=== PATIENT | female | born 1965 | race Caucasian/White ===

== ENCOUNTER 2016-11-19 18:42 | Emergency (ER) | payer OTHER ==
--- NOTE | 2016-11-19 20:01 | ED ORDER SUMMARY ---
..... Patient: JOSE RAUL PRINCE OrderSheet [facility] VisitID: [id number] [address] [place] [address] 51y, F Registration Date/Time: 11/19/2016 ORDER SHEET Weight: 74.3 kg (stated) Allergies: Tylenol GENERAL ORDERS: MEDICATION ORDERS: Dilaudid IM 1 mg (HIGH ALERT MEDICATION, NOW) (19:48 11/19/2016 HBivens A.R.N.P.) (Ack 19:52 JQuivey R.N.) (20:00 JQuivey R.N.) Zofran ODT PO 4 mg (NOW) (19:48 11/19/2016 HBivens A.R.N.P.) (Ack 19:52 JQuivey R.N.) (20:00 JQuivey R.N.) IV FLUIDS: ORDER SHEET NOTES: [Electronically signed by Ambreen McclellandR.N.P. (22:04 11/19/2016)] [Electronically signed by Tony Fagan R.N. (22:22 11/19/2016)] [Electronically locked/signed by Tony Fagan R.N. (22:22 11/19/2016)]
--- NOTE | 2016-11-19 20:01 | ED NURSING NOTES ---
Clinical Report - Nurses [facility] [address] [place] [place] [address] 11/19/2016 18:42 Patient: JOSE RAUL PRINCE TRIAGE Triage time 18:51. Acuity: LEVEL 4. Chief Complaint: MIGRAINE HEADACHE. 18:58 11/19/16. SEPSIS SCREEN: Sepsis Screen. Negative (no infection suspected/documented). GILMER COMA SCORE: [place] Coma Scale: 15- eyes open spontaneously (4); best verbal response- oriented x 4 (5); best motor response- obeys commands (6). --18:59 Amilcar Arias R.N. 18:51 11/19/16. BP: 110/75. HR: 86. RR: 16. O2 saturation: 95% on room air. Temp: 98.5 F (oral). Pain level now: 07/26. --18:59 Amilcar Arias R.N. Weight: 74.3 kg stated. Height/Length: 68 inches Per Patient. BMI: 24.9. --18:56 Amilcar Arias R.N. Medications Effexor XR Oral 75 mg, daily. Gabapentin Oral 300 mg, 2x a day. Ibuprofen Oral 800 mg, PRN. --18:54 Amilcar Arias R.N. Tramadol HCL Oral 50 mg, daily (Started 10 days ago). --18:54 Amilcar Arias R.N. Medication/allergy information source: the patient. --18:59 Amilcar Arias R.N. Allergies Tylenol. (when she takes a lot) --18:54 Amilcar Arias R.N. History Arrived by private vehicle. Historian: patient. This started 3 weeks. ( She has been seen x2 at [facility], migraine continues. She usually gets Toradol injections and has relief, but not this time.). She has had nausea, vomiting and weakness. 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 SOCIAL HX: Heavy tobacco smoker (cigarette)- 1 pack per day. No alcohol use or drug use. ABUSE ASSESSMENT: No report of abuse. --18:59 Amilcar Arias R.N. PROBLEMS: Headache. Fibromyalgia. Depression. Lumbar Strain. Tetanus Status. Immunizations. Migraine Headache. Neck Pain. Back Pain. --18:54 Amilcar Arias R.N. ADDITIONAL SURGERIES: Adenoidectomy. Appendectomy. Back Surgery. . Hysterectomy. Ovarian cysts. Tonsillectomy. Tonsillectomy & Adenoidectomy. --18:54 Amilcar Arias R.N. Interventions ID band on patient. To treatment room. --18:59 Amilcar Arias R.N. PHYSICAL ASSESSMENT late entry -19:00. Ambulatory to room. GENERAL / NEURO / PSYCH: Alert. Oriented X 4. Appears in pain. Speech within normal limits. ( unkempt appearance). HEENT: No facial asymmetry noted. Photophobia present. No sinus tenderness present or nasal discharge. RESPIRATORY: Respirations not labored. Breath sounds within normal limits. CVS: Capillary refill less than 2 seconds. GI / : The patient has had nausea. Abdomen soft and nontender. SKIN: Skin is warm and dry. --19:13 Amilcar Arias R.N. NURSING PROGRESS NOTES late entry -17:00. Pulse oximeter and NIBP monitor placed on patient; monitor alarms on. Head of bed elevated. Reassurance given. Two patient identifiers checked. Call light placed in reach. Bed placed in lowest position. Brakes of bed on. Patient ready for evaluation- chart flagged. --19:14 Amilcar Arias R.N. 19:14 11/19/16. Care transferred and report given (Tony Durant RN). --19:14 Amilcar Arias R.N. 19:58 11/19/2016 Zofran ODT (Ondansetron) PO 4 mg given. Allergies verified and confirmed 5 rights. --20:12 Tony Fagan R.N. 20:00 11/19/2016 Dilaudid (HYDROmorphone HCl PF) IM 1 mg given. Given in the right ventral gluteus. Allergies verified, confirmed 5 rights and sedative warning given to the patient. --20:00 Tnoy Fagan R.N. <<STRICKEN ENTRY-- 20:58 11/19/2016 Zofran ODT (Ondansetron) PO 4 mg given. Allergies verified and confirmed 5 rights. --20:00 Tony Fagan R.N. --END STRIKE>> Correction. --20:12 Tony Fagan R.N. 20:21. The patient is calm and resting quietly. Overall patient status- she states feels better. GENERAL / NEURO / PSYCH: Alert. Oriented X 4. RESPIRATORY: No respiratory distress. SKIN: Skin is warm and dry. Skin color within normal limits. --20:27 Tony Fagan R.N. DISPOSITION / DISCHARGE Departure time: 20:23. Condition at departure: stable. No learning barriers present. Discharge instructions provided and reviewed with the patient. Reviewed medication(s) side effects, precautions, dosing and course information. Prescription(s) given to the patient. Patient verbalized understanding. Written instructions provided in [place]serratian. The patient was discharged home and accompanied by family. She left the Emergency Department ambulatory and via private vehicle. Family member driving. FALL RISK ASSESSMENT: Fall risk assessment completed. No fall risk identified. --20:27 Tony Fagan R.N. 20:19 11/19/16. BP: 97/59. HR: 86. RR: 16. O2 saturation: 96%. Pain level now: 04/25. --20:27 Tony Fagan R.N. Locked/Released at 11/19/2016 22:22 by Tony Fagan R.N.
--- NOTE | 2016-11-19 20:01 | ED ORDER SUMMARY ---
..... Patient: JOSE RAUL PRINCE OrderSheet [facility] VisitID: [id number] [address] [place] [address] 51y, F Registration Date/Time: 11/19/2016 ORDER SHEET Weight: 74.3 kg (stated) Allergies: Tylenol GENERAL ORDERS: MEDICATION ORDERS: Dilaudid IM 1 mg (HIGH ALERT MEDICATION, NOW) (19:48 11/19/2016 HBivens A.R.N.P.) (Ack 19:52 JQuivey R.N.) (20:00 JQuivey R.N.) Zofran ODT PO 4 mg (NOW) (19:48 11/19/2016 HBivens A.R.N.P.) (Ack 19:52 JQuivey R.N.) (20:00 JQuivey R.N.) IV FLUIDS: ORDER SHEET NOTES: [Electronically signed by Ambreen McclellandR.N.P. (22:04 11/19/2016)] [Electronically signed by Tony Fagan R.N. (22:22 11/19/2016)] [Electronically locked/signed by Tony Fagan R.N. (22:22 11/19/2016)]
--- NOTE | 2016-11-19 20:01 | ED CLINICAL REPORT ---
Clinical Report - Physicians/Mid Levels [facility] [address] [place] [address] 11/19/2016 18:42 Patient: JOSE RAUL PRINCE Time Seen: 19:27; initial patient contact, initial documentation, patient care assumed. Arrived- By private vehicle. Historian- patient. HISTORY OF PRESENT ILLNESS Is still present. Chief Complaint: HEADACHE and MIGRAINE HEADACHE. This started about 10 days ago. Onset during sleep. It is described as similar to previous headaches, "pain" and diffuse. No neck pain. Not located in the facial region. At its maximum, severity described as severe. When seen in the E.D., severity described as severe. Modifying factors: worsened by bright light and noise; relieved by nothing. The patient has had mild photophobia. There has been no eye redness or discharge, matting or foreign body sensation. She has had nausea. She has had vomiting (none today). No preceding symptoms, blurred vision, numbness or weakness. No recent travel. Similar symptoms previously: Chronically, as bad. ( wakes up every day with a migraine). Recent medical care: The patient was seen recently at another facility in the emergency department. ( went to [facility] er twice, given toradol each time which helps a little, no f/u). REVIEW OF SYSTEMS No fever, sinus pressure, ear pain, sore throat or carbon monoxide exposure. No chest pain or difficulty breathing. She sustained a mild head injury from bumping into an object (hit top of head on kitchen cabinet). No associated loss of consciousness, difficulty with thinking, memory loss or visual disturbances. No associated bruising, swelling, abrasion or laceration to the head. All systems otherwise negative, except as recorded above. PAST HISTORY See nurses notes. PROBLEMS: Headache. Fibromyalgia. Depression. Lumbar Strain. Tetanus Status. Immunizations. Migraine Headache. Neck Pain. Back Pain. --18:54 Amilcar Arias R.N. ADDITIONAL SURGERIES: Adenoidectomy. Appendectomy. Back Surgery. . Hysterectomy. Ovarian cysts. Tonsillectomy. Tonsillectomy & Adenoidectomy. --18:54 Amilcar Arias R.N. SOCIAL HISTORY Heavy tobacco smoker. No alcohol use or drug use. No recent travel. Is a local resident. FAMILY HISTORY Negative. ADDITIONAL NOTES The nursing notes have been reviewed with agreement regarding the chief complaint, HPI, ROS, PMH and patient medications and allergies. PHYSICAL EXAM Vital Signs: 11/19/2016 18:51 BP: 110/75. HR: 86. RR: 16. O2 saturation: 95%. Temp: 98.5 F. Pain level now: 10. Have been reviewed as normal and appear to be correct. Appearance: Alert. No acute distress. Eyes: Pupils equal, round and reactive to light. Eyes normal inspection. ENT: Ears normal. Nose normal. Pharynx normal. Neck: Normal inspection. Neck supple. CVS: Normal heart rate and rhythm. Heart sounds normal. Pulses normal. Respiratory: No respiratory distress. Breath sounds normal. Abdomen: Soft and nontender. No organomegaly. Back: Normal inspection. Skin: Skin warm and dry. Normal skin color. No rash. Normal skin turgor. Extremities: Extremities exhibit normal ROM. No lower extremity edema. Neuro: Oriented X 3. Alert. Mood/affect normal. Speech normal. Cranial nerves normal (as tested). No cerebellar findings. No motor deficit. No sensory deficit. PROGRESS AND PROCEDURES Course of Care: 19:38 11/19/16. NANCI Green assisting with exam and tx plan with my full supervision. Patient counseled in person regarding the patient's stable condition and diagnosis. 20:01. Differential Diagnosis: I considered migraine, cluster headache, ischemic stroke, subarachnoid hemorrhage, intracranial bleed, vascular malformation, cerebral aneurysm, vasculitis, brain abscess, influenza, viral syndrome, carbon monoxide exposure, hypoglycemia and trigeminal neuralgia as a possible cause of headache in this patient. This is a partial list of diagnoses considered. Above considerations are based on history and physical exam. Differential diagnosis was discussed with patient. Disposition: Discharged home in good and improved condition (20:01). Condition: good and stable. CLINICAL IMPRESSION Episodic cluster headache. INSTRUCTIONS Warnings: GENERAL WARNINGS: Return or contact your physician immediately if your condition worsens or changes unexpectedly, if not improving as expected, or if other problems arise. SPECIFICALLY, return if you develop fever, vomiting, numbness, weakness, difficulty thinking, visual disturbances, fainting or extreme fatigue. Prescription Medications: Zofran 4 mg: Take 1 orally every six hours as needed for nausea/vomiting. Dispense ten (10). No refills. Substitution is permissible. Follow-up: Follow up with your doctor in about three days as needed. Call for an appointment. Summary of care provided to patient. Understanding of the discharge instructions verbalized by patient. (Electronically signed by Ambreen Mcclelland A.R.N.P. 11/19/2016 22:04)
--- NOTE | 2016-11-19 20:01 | ED NURSING NOTES ---
Clinical Report - Nurses [facility] [address] [place] [address] 11/19/2016 18:42 Patient: JOSE RAUL PRINCE TRIAGE Triage time 18:51. Acuity: LEVEL 4. Chief Complaint: MIGRAINE HEADACHE. 18:58 11/19/16. SEPSIS SCREEN: Sepsis Screen. Negative (no infection suspected/documented). GILMER COMA SCORE: [place] Coma Scale: 15- eyes open spontaneously (4); best verbal response- oriented x 4 (5); best motor response- obeys commands (6). --18:59 Amilcar Arias R.N. 18:51 11/19/16. BP: 110/75. HR: 86. RR: 16. O2 saturation: 95% on room air. Temp: 98.5 F (oral). Pain level now: 07/26. --18:59 Amilcar Arias R.N. Weight: 74.3 kg stated. Height/Length: 68 inches Per Patient. BMI: 24.9. --18:56 Amilcar Arias R.N. Medications Effexor XR Oral 75 mg, daily. Gabapentin Oral 300 mg, 2x a day. Ibuprofen Oral 800 mg, PRN. --18:54 Amilcar Arias R.N. Tramadol HCL Oral 50 mg, daily (Started 10 days ago). --18:54 Amilcar Arias R.N. Medication/allergy information source: the patient. --18:59 Amilcar Arias R.N. Allergies Tylenol. (when she takes a lot) --18:54 Amilcar Arias R.N. History Arrived by private vehicle. Historian: patient. This started 3 weeks. ( She has been seen x2 at [facility], migraine continues. She usually gets Toradol injections and has relief, but not this time.). She has had nausea, vomiting and weakness. 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 SOCIAL HX: Heavy tobacco smoker (cigarette)- 1 pack per day. No alcohol use or drug use. ABUSE ASSESSMENT: No report of abuse. --18:59 Amilcar Arias R.N. PROBLEMS: Headache. Fibromyalgia. Depression. Lumbar Strain. Tetanus Status. Immunizations. Migraine Headache. Neck Pain. Back Pain. --18:54 Amilcar Arias R.N. ADDITIONAL SURGERIES: Adenoidectomy. Appendectomy. Back Surgery. . Hysterectomy. Ovarian cysts. Tonsillectomy. Tonsillectomy & Adenoidectomy. --18:54 Amilcar Arias R.N. Interventions ID band on patient. To treatment room. --18:59 Amilcar Arias R.N. PHYSICAL ASSESSMENT late entry -19:00. Ambulatory to room. GENERAL / NEURO / PSYCH: Alert. Oriented X 4. Appears in pain. Speech within normal limits. ( unkempt appearance). HEENT: No facial asymmetry noted. Photophobia present. No sinus tenderness present or nasal discharge. RESPIRATORY: Respirations not labored. Breath sounds within normal limits. CVS: Capillary refill less than 2 seconds. GI / : The patient has had nausea. Abdomen soft and nontender. SKIN: Skin is warm and dry. --19:13 Amilcar Arias R.N. NURSING PROGRESS NOTES late entry -17:00. Pulse oximeter and NIBP monitor placed on patient; monitor alarms on. Head of bed elevated. Reassurance given. Two patient identifiers checked. Call light placed in reach. Bed placed in lowest position. Brakes of bed on. Patient ready for evaluation- chart flagged. --19:14 Amilcar Arias R.N. 19:14 11/19/16. Care transferred and report given (Tony Durant RN). --19:14 Amilcar Arias R.N. 19:58 11/19/2016 Zofran ODT (Ondansetron) PO 4 mg given. Allergies verified and confirmed 5 rights. --20:12 Tony Fagan R.N. 20:00 11/19/2016 Dilaudid (HYDROmorphone HCl PF) IM 1 mg given. Given in the right ventral gluteus. Allergies verified, confirmed 5 rights and sedative warning given to the patient. --20:00 Tony Fagan R.N. <<STRICKEN ENTRY-- 20:58 11/19/2016 Zofran ODT (Ondansetron) PO 4 mg given. Allergies verified and confirmed 5 rights. --20:00 Tony Fagan R.N. --END STRIKE>> Correction. --20:12 Tony Fagan R.N. 20:21. The patient is calm and resting quietly. Overall patient status- she states feels better. GENERAL / NEURO / PSYCH: Alert. Oriented X 4. RESPIRATORY: No respiratory distress. SKIN: Skin is warm and dry. Skin color within normal limits. --20:27 Tony Fagan R.N. DISPOSITION / DISCHARGE Departure time: 20:23. Condition at departure: stable. No learning barriers present. Discharge instructions provided and reviewed with the patient. Reviewed medication(s) side effects, precautions, dosing and course information. Prescription(s) given to the patient. Patient verbalized understanding. Written instructions provided in Salv[place]orean. The patient was discharged home and accompanied by family. She left the Emergency Department ambulatory and via private vehicle. Family member driving. FALL RISK ASSESSMENT: Fall risk assessment completed. No fall risk identified. --20:27 Tony Fagan R.N. 20:19 11/19/16. BP: 97/59. HR: 86. RR: 16. O2 saturation: 96%. Pain level now: 04/25. --20:27 Tony Fagan R.N. Locked/Released at 11/19/2016 22:22 by Tony Fagan R.N.
--- NOTE | 2016-11-19 22:23 | ED MAR SUMMARY ---
..... Medication Administration Record [facility] [address] [place] [address] Patient: JOSE RAUL PRINCE Visit ID: [id number] 51y, F Weight: 74.3 kg Height/Length: 68 in BMI: 24.9 ALLERGIES: Tylenol Given 19:58 11/19/2016 Tony Fagan, R.N. Medication Administered: ZOFRAN ODT [PO] (ONDANSETRON), Dose: 4 mg PO. Medication Ordered: Zofran ODT PO 4 mg (NOW). Given 20:00 11/19/2016 Tony Fagan, R.N. Medication Administered: DILAUDID [IM] (HYDROMORPHONE HCL PF), Dose: 1 mg IM. Medication Ordered: Dilaudid IM 1 mg (HIGH ALERT MEDICATION, NOW).
--- NOTE | 2016-11-19 22:23 | ED DISCHARGE INSTRUCTIONS ---
Patient: JOSE RAUL PRINCE General Instructions Merged With [facility] VisitID: [id number] [place] [address] 51y, F Registration Date/Time: 11/19/2016 Episodic cluster headache. INSTRUCTIONS Warnings: GENERAL WARNINGS: Return or contact your physician immediately if your condition worsens or changes unexpectedly, if not improving as expected, or if other problems arise. SPECIFICALLY, return if you develop fever, vomiting, numbness, weakness, difficulty thinking, visual disturbances, fainting or extreme fatigue. Prescription Medications: Zofran 4 mg: Take 1 orally every six hours as needed for nausea/vomiting. Dispense ten (10). No refills. Substitution is permissible. Follow-up: Follow up with your doctor in about three days as needed. Call for an appointment. Summary of care provided to patient. Understanding of the discharge instructions verbalized by patient. ADDITIONAL INFORMATION Headache [Unspecified] The cause of your headache today is not clear, but it does not appear to be the sign of any serious illness. Under stress, some people tense the muscles of their shoulder, neck and scalp without knowing it. If this condition lasts long enough, a TENSION HEADACHE can occur. A MIGRAINE HEADACHE is caused by changes in blood flow to the brain. A migraine attack may be triggered by emotional stress, hormone changes during the menstrual cycle, oral contraceptives, alcohol use, certain foods containing tyramine, eye strain, weather changes, missing meals, lack of sleep or oversleeping. Other causes of headache include a viral illness with high fever, head injury with concussion, sinus, ear or throat infection, dental pain and TMJ (jaw joint) pain. More serious but less common causes of headache include stroke, brain hemorrhage, brain tumor, meningitis and encephalitis. Home Care: If you were given pain medicine for this headache, do not drive yourself home. Arrange for a ride, instead. When you get home, try to sleep. You should feel much better when you wake up. Apply heat to the back of your neck to relieve neck muscle spasm. Migraine headaches may respond best to an ice pack on the forehead or at the base of the skull. If you are having nausea or vomiting, follow a light diet until your headache is relieved. If you have a migraine type headache, use sunglasses when in the daylight or around bright indoor lighting until symptoms improve. Bright glaring light can worsen this kind of headache. Follow Up with your doctor if the headache is not better within the next 24 hours. If you have frequent headaches you should discuss a treatment plan with your primary care doctor. By being aware of the earliest signs of headache, and starting treatment right away, you may be able to stop the pain yourself. Get Prompt Medical Attention if any of the following occur: Worsening of your head pain or no improvement within 24 hours Repeated vomiting (unable to keep liquids down) Fever of 100.4F (38C) or higher, or as directed by your healthcare provider Stiff neck Extreme drowsiness, confusion or fainting Dizziness, vertigo (dizziness with spinning sensation) Weakness of an arm or leg or one side of the face Difficulty with speech or vision Ondansetron Oral disintegrating tablet What is this medicine? ONDANSETRON (on TIANA se mari) is used to treat nausea and vomiting caused by chemotherapy. It is also used to prevent or treat nausea and vomiting after surgery. How should I use this medicine? These tablets are made to dissolve in the mouth. Do not try to push the tablet through the foil backing. With dry hands, peel away the foil backing and gently remove the tablet. Place the tablet in the mouth and allow it to dissolve, then swallow. While you may take these tablets with water, it is not necessary to do so. Talk to your film printer regarding the use of this medicine in children. Special care may be needed. What side effects may I notice from receiving this medicine? Side effects that you should report to your doctor or health personal carer as soon as possible: allergic reactions like skin rash, itching or hives, swelling of the face, lips, or tongue breathing problems dizziness fast or irregular heartbeat feeling faint or lightheaded, falls fever and chills swelling of the hands and feet tightness in the chest Side effects that usually do not require medical attention (report to your doctor or health personal carer if they continue or are bothersome): constipation or diarrhea headache What may interact with this medicine? Do not take this medicine with any of the following medications: -apomorphine -cisapride -dofetilide -dronedarone -pimozide -thioridazine -ziprasidone This medicine may also interact with the following medications: -carbamazepine -phenytoin -rifampicin -tramadol -other medicines that prolong the QT interval (cause an abnormal heart rhythm) What if I miss a dose? If you miss a dose, take it as soon as you can. If it is almost time for your next dose, take only that dose. Do not take double or extra doses. Where should I keep my medicine? Keep out of the reach of children. Store between 2 and 30 degrees C (36 and 86 degrees F). Throw away any unused medicine after the expiration date. What should I tell my health care provider before I take this medicine? They need to know if you have any of these conditions: heart disease history of irregular heartbeat liver disease low levels of magnesium or potassium in the blood an unusual or allergic reaction to ondansetron, granisetron, other medicines, foods, dyes, or preservatives or trying to get breast-feeding What should I watch for while using this medicine? Check with your doctor or health personal carer as soon as you can if you have any sign of an allergic reaction. You have been given the following additional information: Headache, Unspecified Ondansetron Oral disintegrating tablet (Electronically signed by Ambreen Mcclelland A.R.N.P. 11/19/2016 22:04)
--- NOTE | 2016-11-19 22:23 | ED DISCHARGE INSTRUCTIONS ---
Patient: JOSE RAUL PRINCE General Instructions [facility] VisitID: [id number] [place] [address] 51y, F Registration Date/Time: 11/19/2016 Episodic cluster headache. INSTRUCTIONS Warnings: GENERAL WARNINGS: Return or contact your physician immediately if your condition worsens or changes unexpectedly, if not improving as expected, or if other problems arise. SPECIFICALLY, return if you develop fever, vomiting, numbness, weakness, difficulty thinking, visual disturbances, fainting or extreme fatigue. Prescription Medications: Zofran 4 mg: Take 1 orally every six hours as needed for nausea/vomiting. Dispense ten (10). No refills. Substitution is permissible. Follow-up: Follow up with your doctor in about three days as needed. Call for an appointment. Summary of care provided to patient. Understanding of the discharge instructions verbalized by patient. ADDITIONAL INFORMATION Headache [Unspecified] The cause of your headache today is not clear, but it does not appear to be the sign of any serious illness. Under stress, some people tense the muscles of their shoulder, neck and scalp without knowing it. If this condition lasts long enough, a TENSION HEADACHE can occur. A MIGRAINE HEADACHE is caused by changes in blood flow to the brain. A migraine attack may be triggered by emotional stress, hormone changes during the menstrual cycle, oral contraceptives, alcohol use, certain foods containing tyramine, eye strain, weather changes, missing meals, lack of sleep or oversleeping. Other causes of headache include a viral illness with high fever, head injury with concussion, sinus, ear or throat infection, dental pain and TMJ (jaw joint) pain. More serious but less common causes of headache include stroke, brain hemorrhage, brain tumor, meningitis and encephalitis. Home Care: If you were given pain medicine for this headache, do not drive yourself home. Arrange for a ride, instead. When you get home, try to sleep. You should feel much better when you wake up. Apply heat to the back of your neck to relieve neck muscle spasm. Migraine headaches may respond best to an ice pack on the forehead or at the base of the skull. If you are having nausea or vomiting, follow a light diet until your headache is relieved. If you have a migraine type headache, use sunglasses when in the daylight or around bright indoor lighting until symptoms improve. Bright glaring light can worsen this kind of headache. Follow Up with your doctor if the headache is not better within the next 24 hours. If you have frequent headaches you should discuss a treatment plan with your primary care doctor. By being aware of the earliest signs of headache, and starting treatment right away, you may be able to stop the pain yourself. Get Prompt Medical Attention if any of the following occur: Worsening of your head pain or no improvement within 24 hours Repeated vomiting (unable to keep liquids down) Fever of 100.4F (38C) or higher, or as directed by your healthcare provider Stiff neck Extreme drowsiness, confusion or fainting Dizziness, vertigo (dizziness with spinning sensation) Weakness of an arm or leg or one side of the face Difficulty with speech or vision Ondansetron Oral disintegrating tablet What is this medicine? ONDANSETRON (on TIANA se mari) is used to treat nausea and vomiting caused by chemotherapy. It is also used to prevent or treat nausea and vomiting after surgery. How should I use this medicine? These tablets are made to dissolve in the mouth. Do not try to push the tablet through the foil backing. With dry hands, peel away the foil backing and gently remove the tablet. Place the tablet in the mouth and allow it to dissolve, then swallow. While you may take these tablets with water, it is not necessary to do so. Talk to your manager technical sales regarding the use of this medicine in children. Special care may be needed. What side effects may I notice from receiving this medicine? Side effects that you should report to your doctor or health animal caregiver as soon as possible: allergic reactions like skin rash, itching or hives, swelling of the face, lips, or tongue breathing problems dizziness fast or irregular heartbeat feeling faint or lightheaded, falls fever and chills swelling of the hands and feet tightness in the chest Side effects that usually do not require medical attention (report to your doctor or health animal caregiver if they continue or are bothersome): constipation or diarrhea headache What may interact with this medicine? Do not take this medicine with any of the following medications: -apomorphine -cisapride -dofetilide -dronedarone -pimozide -thioridazine -ziprasidone This medicine may also interact with the following medications: -carbamazepine -phenytoin -rifampicin -tramadol -other medicines that prolong the QT interval (cause an abnormal heart rhythm) What if I miss a dose? If you miss a dose, take it as soon as you can. If it is almost time for your next dose, take only that dose. Do not take double or extra doses. Where should I keep my medicine? Keep out of the reach of children. Store between 2 and 30 degrees C (36 and 86 degrees F). Throw away any unused medicine after the expiration date. What should I tell my health care provider before I take this medicine? They need to know if you have any of these conditions: heart disease history of irregular heartbeat liver disease low levels of magnesium or potassium in the blood an unusual or allergic reaction to ondansetron, granisetron, other medicines, foods, dyes, or preservatives or trying to get breast-feeding What should I watch for while using this medicine? Check with your doctor or health animal caregiver as soon as you can if you have any sign of an allergic reaction. You have been given the following additional information: Headache, Unspecified Ondansetron Oral disintegrating tablet (Electronically signed by Ambreen Mcclelland A.R.N.P. 11/19/2016 22:04)
--- NOTE | 2016-11-19 22:23 | ED MED RECONCILIATION SUMMARY ---
Patient: JOSE RAUL PRINCE Medication Reconciliation Report [facility] VisitID: [id number] [address] [place] [address] 51y, F Registration Date/Time: 11/19/2016 Weight: 74.3 kg Height/Length: 68 in. BMI: 24.9 ALLERGIES: Tylenol The patient's Home Medications are listed below: THE FOLLOWING MEDICATIONS NEED TO BE RECONCILED: Effexor XR Oral 75 mg, daily Gabapentin Oral 300 mg, 2x a day Ibuprofen Oral 800 mg, PRN Tramadol HCL Oral 50 mg, daily, Started 10 days ago The source(s) of the original Home Medication information: patient The following Medications were given to the patient in the Emergency Department: Zofran ODT [PO] PO 4 mg, administered: 11/19/2016 7:58:00 PM Dilaudid [IM] IM 1 mg, administered: 11/19/2016 8:00:00 PM The following Medications were prescribed to the patient: Zofran 4 mg: Take 1 orally every six hours as needed for nausea/vomiting. Dispense ten (10). No refills. Substitution is permissible. -- Ambreen Mcclelland A.R.N.P.
--- NOTE | 2016-11-19 22:23 | ED MED RECONCILIATION SUMMARY ---
Patient: JOSE RAUL PRINCE Medication Reconciliation Report [facility] VisitID: [id number] [address] [place] [address] 51y, F Registration Date/Time: 11/19/2016 Weight: 74.3 kg Height/Length: 68 in. BMI: 24.9 ALLERGIES: Tylenol The patient's Home Medications are listed below: THE FOLLOWING MEDICATIONS NEED TO BE RECONCILED: Effexor XR Oral 75 mg, daily Gabapentin Oral 300 mg, 2x a day Ibuprofen Oral 800 mg, PRN Tramadol HCL Oral 50 mg, daily, Started 10 days ago The source(s) of the original Home Medication information: patient The following Medications were given to the patient in the Emergency Department: Zofran ODT [PO] PO 4 mg, administered: 11/19/2016 7:58:00 PM Dilaudid [IM] IM 1 mg, administered: 11/19/2016 8:00:00 PM The following Medications were prescribed to the patient: Zofran 4 mg: Take 1 orally every six hours as needed for nausea/vomiting. Dispense ten (10). No refills. Substitution is permissible. -- Ambreen Mcclelland A.R.N.P.
--- NOTE | 2016-11-19 22:23 | ED MAR SUMMARY ---
..... Medication Administration Record [facility] [address] [place] [address] Patient: JOSE RAUL PRINCE Visit ID: [id number] 51y, F Weight: 74.3 kg Height/Length: 68 in BMI: 24.9 ALLERGIES: Tylenol Given 19:58 11/19/2016 Tony Fagan, R.N. Medication Administered: ZOFRAN ODT [PO] (ONDANSETRON), Dose: 4 mg PO. Medication Ordered: Zofran ODT PO 4 mg (NOW). Given 20:00 11/19/2016 Tony Fagan, R.N. Medication Administered: DILAUDID [IM] (HYDROMORPHONE HCL PF), Dose: 1 mg IM. Medication Ordered: Dilaudid IM 1 mg (HIGH ALERT MEDICATION, NOW).
== END 2016-11-19 20:23 | disposition home or self-care (01) ==
LOC: ED SRH 18:42
DX: G44.019 Episodic cluster headache, not intractable (principal); F17.210 Nicotine dependence, cigarettes, uncomplicated; Z88.6 Allergy status to analgesic agent

== ENCOUNTER 2016-11-20 01:34 | Emergency (ER) | payer OTHER ==
--- NOTE | 2016-11-20 03:19 | ED CLINICAL REPORT ---
Clinical Report - Physicians/Mid Levels [facility] [address] [place] [place] [address] 11/20/2016 1:34 Patient: JOSE RAUL PRINCE Time Seen: 0145; initial patient contact. Arrived- By private vehicle. Historian- patient. HISTORY OF PRESENT ILLNESS Chief Complaint: HEADACHE. Is still present (staying the same). This started 1 week ago. It was gradual in onset and has been constant and waxing/waning but is not gone now. Patient was last known well (1 week ago). Onset during does not recall. It is described as similar to previous headaches. Located in the right hemicranial region. No neck pain. Not located in the facial region. At its maximum, severity described as severe. When seen in the E.D., severity described as severe. Modifying factors: worsened by bright light and noise; relieved by nothing; (usually better with "Toradol" but that did not help recently). The patient has had photophobia and nausea. No preceding symptoms, blurred vision, numbness, weakness or vomiting. No recent travel. Similar symptoms previously: Many times. ( hx of "migraines"). Recent medical care: The patient was seen recently in a clinic (reports she got toradol at [facility] but that has not helped.). REVIEW OF SYSTEMS No fever, chest pain, difficulty breathing, abdominal pain or skin rash. All systems otherwise negative, except as recorded above. PAST HISTORY See nurses notes. SOCIAL HISTORY Smoker- current status unknown. No alcohol use or drug use. No recent travel. Is a local resident. FAMILY HISTORY Negative. ADDITIONAL NOTES The nursing notes have been reviewed. PHYSICAL EXAM Vital Signs: 11/20/2016 01:40 BP: 133/78. HR: 87. RR: 19. O2 saturation: 95%. Temp: 97.1 F. Pain level now: 9/10. Blood pressure normal. Oxygen saturation normal. Appearance: Alert. No acute distress. Eyes: Pupils equal, round and reactive to light. Eyes normal inspection. (no papilledema. Normal appearing retinal vasculature. Conjunctiva without injection. Normal lids, lacrimals, and lashes). ENT: Ears normal. Nose normal. Pharynx normal. Neck: Normal inspection. Neck supple. No meningeal signs. CVS: Normal heart rate and rhythm. Heart sounds normal. Pulses normal. Respiratory: No respiratory distress. Breath sounds normal. Abdomen: Soft and nontender. No organomegaly. Back: Normal inspection. Skin: Skin warm and dry. Normal skin color. No rash. Normal skin turgor. Extremities: Extremities exhibit normal ROM. No lower extremity edema. Neuro: Oriented X 3. Alert. Mood/affect normal. Speech normal. Cranial nerves normal (as tested). No cerebellar findings. No motor deficit. No sensory deficit. Reflexes normal. PROGRESS AND PROCEDURES Course of Care: the patient is a pleasant 51-year-old female with past medical history significant for headaches presented for evaluation of headache. Headache appears to be similar to prior headaches. Patient then evaluated for supper hemorrhage, meningitis, space-occupying lesion, and increased intracranial pressure. Signs and symptoms here in the emergency department as well as history are not consistent with any these etiologies. Patient is resting in bed and appears nontoxic. Vital signs are unremarkable. Medications for headache and been given. Patient is agreeable to the treatment plan. Work up shows patient to be doing much better. Patient symptoms improved. Per RN, patient reporting "restless leg syndrome." patient reevaluated. Patient sleeping in bed and snoring. Appropriate when awake. No symptoms. Repeat exam benign. Pain reported at a zero. Do not feel patient has a more sinister cause for headache. All questions answered. Patient expressed understanding of these instructions and was agreeable to them. Patient evaluated prior to discharge. Continues to be doing well. Exam reassuring. Disposition: Discharged. Condition: good. CLINICAL IMPRESSION 11/20/2016 01:40 BP: 133/78. HR: 87. RR: 19. O2 saturation: 95%. Temp: 97.1 F. Pain level now: 9/10. Acute headache (right sided). Blood pressure normal. Oxygen saturation normal. INSTRUCTIONS Warnings: GENERAL WARNINGS: Return or contact your physician immediately if your condition worsens or changes unexpectedly, if not improving as expected, or if other problems arise. SPECIFICALLY, return if you develop fever, vomiting, numbness, weakness, difficulty thinking, visual disturbances, fainting or extreme fatigue. Your Current Medications: CONTINUE TAKING THE FOLLOWING MEDICATIONS: Effexor XR Oral : 75 mg daily. Gabapentin Oral : 300 mg 2x a day. Ibuprofen Oral : 800 mg PRN. Tramadol HCL Oral : 50 mg daily, Started 10 days ago. Prescription Medications: Zofran (orally disintegrating tablets) 4 mg: take 1 orally every 8 hours as needed for nausea and vomiting. Dispense ten (10). No refill. Substitution is permissible. Fiorinal 50 mg: take 1 orally every 6 hours as needed for pain or headache. Dispense thirty (30). No refill. Substitution is permissible. Follow-up: Return to the emergency department as needed. Follow up with your doctor in three days. Reason for referral: recheck today's concerns. Summary of care provided to patient via paper. Screening today revealed the patient's blood pressure to be in the normal range. The patient should follow up with a primary care provider for blood pressure management. Understanding of the discharge instructions verbalized by patient. (Electronically signed by Jordin Weiner Dr. 11/26/2016 21:23)
--- NOTE | 2016-11-20 03:19 | ED ORDER SUMMARY ---
..... Patient: JOSE RAUL PRINCE OrderSheet [facility] VisitID: [id number] [address] [place] [address] 51y, F Registration Date/Time: 11/20/2016 ORDER SHEET Weight: 74.3 kg (stated) Allergies: Tylenol GENERAL ORDERS: MEDICATION ORDERS: Phenergan IV 25 mg (HIGH ALERT MEDICATION, NOW) (01:57 11/20/2016 Theron Bailon) (Ack 2:03 JQuivey R.N.) (2:17 JQuivey R.N.) IV FLUIDS: IV NS : initial bolus 1000 mL (1000 mL/hr), then none - for X1 (NOW) (:56 11/20/2016 Theron Bailon) (Ack 2:02 JQuivey R.N.) (2:16 JQuivey R.N.) Toradol IV 30 mg (NOW) (:56 11/20/2016 Theron Bailon) (Ack 2:02 JQuivey R.N.) (2:19 JQuivey R.N.) Benadryl IV 25 mg (NOW) (:56 11/20/2016 Theron Bailon) (Ack 2:02 JQuivey R.N.) (2:19 JQuivey R.N.) Decadron IV 10 mg (NOW) (:57 11/20/2016 Theron Bailon) (Ack 2:03 JQuivey R.N.) (2:20 JQuivey R.N.) ORDER SHEET NOTES: [Electronically signed by Tony Fagan R.N. (03:36 11/20/2016)] [Electronically signed by Jordin Weiner Dr. (21:23 11/26/2016)] [Electronically locked/signed by Tony Fagan R.N. (03:36 11/20/2016)]
--- NOTE | 2016-11-20 03:19 | ED NURSING NOTES ---
Clinical Report - Nurses [facility] [address] [place] [address] 11/20/2016 1:34 Patient: JOSE RAUL PRINCE TRIAGE Triage time 01:40. Acuity: LEVEL 4. Chief Complaint: HEADACHE. Alert. SEPSIS SCREEN: Sepsis Screen. Negative (no infection suspected/documented). GILMER COMA SCORE: [place] Coma Scale: 15- eyes open spontaneously (4); best verbal response- oriented x 4 (5); best motor response- obeys commands (6). --01:48 Tony Fagan R.N. 01:40 11/20/16. BP: 133/78. HR: 87. RR: 19. O2 saturation: 95% on room air. Temp: 97.1 F (axillary). Pain level now: 9/10. Additional comments: Oral temp was 94.5 - pt states she had water with Ibuprofen . --01:48 Tony Fagan R.N. Acuity: LEVEL 3. --02:23 Tony Fagan R.N. Weight: 74.3 kg stated. Height/Length: 68 inches Per Patient. BMI: 24.9. --01:45 Tony Fagan R.N. Medications Effexor XR Oral 75 mg, daily. Gabapentin Oral 300 mg, 2x a day. Ibuprofen Oral 800 mg, PRN. --01:45 Tony Fagan R.N. Tramadol HCL Oral 50 mg, daily (Started 10 days ago). --01:45 Tony Fagan R.N. Medication/allergy information source: the patient. --01:48 Tony Fagan R.N. Allergies Tylenol. (when she takes a lot) --01:45 Tony Fagan R.N. History Arrived by private vehicle. Historian: patient. Unaccompanied. Primary physician (None). This started 1 weeks ago. ( Patient was seen in the ED last evening with same complaint, states KWON got no better after leaving the ED. States she was able to sleep for a bit since waking the KWON has gotten worse). Treatment [employer]: Took ibuprofen. PAST MEDICAL HX: Immunizations: up-to-date. The patient has had a hysterectomy. SOCIAL HX: Current every day heavy tobacco smoker- 1 pack per day. No alcohol use or drug use. No recent travel. No infectious disease exposure. ABUSE ASSESSMENT: No report of abuse. FALL RISK ASSESSMENT: Fall risk assessment completed. No fall risk identified. NUTRITIONAL RISK ASSESSMENT: The nutritional risk assessment revealed no deficiencies. FUNCTIONAL ASSESSMENT: Functional assessment: no impairments noted. LEARNING NEEDS ASSESSMENT: The learning needs assessment revealed no barriers. SKIN INTEGRITY ASSESSMENT: Skin integrity risk assessment completed. No skin integrity risk identified. --01:48 Tony Fagan R.N. PROBLEMS: Headache. Fibromyalgia. Depression. Lumbar Strain. Migraine Headache. Back Pain. --01:45 Tony Fagan R.N. ADDITIONAL SURGERIES: Adenoidectomy. Appendectomy. Back Surgery. . Hysterectomy. Ovarian cysts. Tonsillectomy. Tonsillectomy & Adenoidectomy. --01:45 Tony Fagan R.N. Interventions ID band on patient. To treatment room. --01:48 Tony Fagan R.N. PHYSICAL ASSESSMENT 01:48. To room via wheelchair. GENERAL / NEURO / PSYCH: Alert. Oriented X 4. Speech within normal limits. HEENT: No facial asymmetry noted. RESPIRATORY: Respirations not labored. SKIN: Skin is warm and dry. --01:48 Tony Fagan R.N. NURSING PROGRESS NOTES 01:48. Head of bed elevated. Two patient identifiers checked. Call light placed in reach. Bed placed in lowest position. Brakes of bed on. Patient ready for evaluation- chart flagged. --01:48 Tony Fagan R.N. Cold pack applied (given to pt). --01:50 Tony Fagan R.N. 02:11/20/2016 Site #1 started via IV in the right antecubital space with an 20g angiocath, with aseptic technique and good blood return; one attempt. Blood drawn: rainbow set. Labeled in the presence of the patient and sent to the lab. --02:16 Tony Fagan R.N. 02:11/20/2016 Started bag #1 1000 mL IV Fluids IV NS (Saline); at 750 mL/hr over 1 hour(s) via site #1 --02:16 Tony Fagan R.N. 02:11 11/20/2016 PHENERGAN (Promethazine HCl) IVP 25 mg given over 2 minute(s) via site #1. Allergies verified and confirmed 5 rights. IV patency established. IV site checked: no pain, redness, or swelling. IV flushed thoroughly pre- and post-medication administration. --02:17 Tony Fagan R.N. 02:13 11/20/2016 Benadryl (DiphenhydrAMINE HCl) IVP 25 mg given over 2 minute(s) via site #1. Allergies verified, confirmed 5 rights and sedative warning given to the patient. IV patency established. IV site checked: no pain, redness, or swelling. IV flushed thoroughly pre- and post-medication administration. --02:19 Tony Fagan R.N. 02:15 11/20/2016 Toradol IVP 30 mg given over 2 minute(s) via site #1. Allergies verified and confirmed 5 rights. IV patency established. IV site checked: no pain, redness, or swelling. IV flushed thoroughly pre- and post-medication administration. --02:19 Tony Fagan R.N. 02:17 11/20/2016 Decadron IVP 10 mg given over 2 minute(s) via site #1. Allergies verified and confirmed 5 rights. IV patency established. IV site checked: no pain, redness, or swelling. IV flushed thoroughly pre- and post-medication administration. --02:20 Tony Fagan R.N. The patient is calm and resting quietly. GENERAL / NEURO / PSYCH: Alert. Oriented X 4. RESPIRATORY: No respiratory distress. SKIN: Skin is warm and dry. Skin color within normal limits. --03:03 Tony Fagan R.N. 03:03 11/20/16. Pain level now: 04/25. --03:03 Tony Fagan R.N. 03:27 11/20/2016 IV Fluids IV NS Discontinued: bag #1 STOPPED upon discharge. Total amount infused: 825 mL. IV patency established. IV site checked: no pain, redness, or swelling. IV flushed thoroughly. --03:31 Tony Fagan R.N. 03:32. The patient is calm and resting quietly. Overall patient status is improved- she states feels better. GENERAL / NEURO / PSYCH: Alert. Oriented X 4. RESPIRATORY: No respiratory distress. SKIN: Skin is warm and dry. Skin color within normal limits. --03:36 Tony Fagan R.N. DISPOSITION / DISCHARGE 03:28 11/20/2016 Site #1 removed upon discharge. Catheter intact. Bandage applied. --03:31 Tony Fagan R.N. Departure time: 03:34. Condition at departure: stable. No learning barriers present. Discharge instructions provided and reviewed with the patient. Reviewed medication(s) side effects, precautions, dosing and course information. Prescription(s) given to the patient. Patient verbalized understanding. Written instructions provided in Nauruan. The patient was discharged home and unaccompanied at time of discharge. She left the Emergency Department ambulatory and via private vehicle. Patient driving. FALL RISK ASSESSMENT: Fall risk assessment completed. No fall risk identified. --03:36 Tony Fagan R.N. 03:26 11/20/16. BP: 111/70. HR: 70. RR: 16. O2 saturation: 94%. Pain level now: 01/24. --03:36 Tony Fagan R.N. Locked/Released at 11/20/2016 3:36 by Tony Fagan R.N.
--- NOTE | 2016-11-20 03:19 | ED ORDER SUMMARY ---
..... Patient: JOSE RAUL PRINCE OrderSheet [facility] VisitID: [id number] [address] [place] [address] 51y, F Registration Date/Time: 11/20/2016 ORDER SHEET Weight: 74.3 kg (stated) Allergies: Tylenol GENERAL ORDERS: MEDICATION ORDERS: Phenergan IV 25 mg (HIGH ALERT MEDICATION, NOW) (01:57 11/20/2016 Theron Bailon) (Ack 2:03 JQuivey R.N.) (2:17 JQuivey R.N.) IV FLUIDS: IV NS : initial bolus 1000 mL (1000 mL/hr), then none - for X1 (NOW) (:56 11/20/2016 Theron Bailon) (Ack 2:02 JQuivey R.N.) (2:16 JQuivey R.N.) Toradol IV 30 mg (NOW) (:56 11/20/2016 Theron Bailon) (Ack 2:02 JQuivey R.N.) (2:19 JQuivey R.N.) Benadryl IV 25 mg (NOW) (:56 11/20/2016 Theron Bailon) (Ack 2:02 JQuivey R.N.) (2:19 JQuivey R.N.) Decadron IV 10 mg (NOW) (:57 11/20/2016 Theron Bailon) (Ack 2:03 JQuivey R.N.) (2:20 JQuivey R.N.) ORDER SHEET NOTES: [Electronically signed by Tony Fagan R.N. (03:36 11/20/2016)] [Electronically signed by Jordin Wiener Dr. (21:23 11/26/2016)] [Electronically locked/signed by Tony Fagan R.N. (03:36 11/20/2016)]
--- NOTE | 2016-11-26 21:23 | ED MAR SUMMARY ---
..... Medication Administration Record [facility] [address] [place] [address] Patient: JOSE RAUL PRINCE Visit ID: [id number] 51y, F Weight: 74.3 kg Height/Length: 68 in BMI: 24.9 ALLERGIES: Tylenol Start 02:10 11/20/2016 Tony Fagan R.N., Stop 03:27 11/20/2016 Tony Fagan R.N. Medication Administered: IV NS (SALINE), Dose: IV Fluids over 1 hour(s), Rate: 750 mL/hr, Dispensed: 1000 mL bag, Site: #1 right AC. Medication Ordered: IV NS : initial bolus 1000 mL (1000 mL/hr), then none - for X1 (NOW). Given 02:11 11/20/2016 Tony Fagan R.N. Medication Administered: PHENERGAN [IVP] (PROMETHAZINE HCL), Dose: 25 mg IVP over 2 minute(s), Site: #1 right AC. Medication Ordered: Phenergan IV 25 mg (HIGH ALERT MEDICATION, NOW). Given 02:13 11/20/2016 Tony Fagan R.N. Medication Administered: BENADRYL [IVP] (DIPHENHYDRAMINE HCL), Dose: 25 mg IVP over 2 minute(s), Site: #1 right AC. Medication Ordered: Benadryl IV 25 mg (NOW). Given 02:15 11/20/2016 Tony Fagan R.N. Medication Administered: TORADOL [IVP], Dose: 30 mg IVP over 2 minute(s), Site: #1 right AC. Medication Ordered: Toradol IV 30 mg (NOW). Given 02:17 11/20/2016 Tony Fagan R.N. Medication Administered: DECADRON [IVP], Dose: 10 mg IVP over 2 minute(s), Site: #1 right AC. Medication Ordered: Decadron IV 10 mg (NOW).
--- NOTE | 2016-11-26 21:23 | ED MED RECONCILIATION SUMMARY ---
Patient: JOSE RAUL PRINCE Medication Reconciliation Report [facility] VisitID: [id number] [address] [place] [address] 51y, F Registration Date/Time: 11/20/2016 Weight: 74.3 kg Height/Length: 68 in. BMI: 24.9 ALLERGIES: Tylenol The patient's Home Medications are listed below: CONTINUE TAKING THE FOLLOWING MEDICATIONS: Effexor XR Oral 75 mg, daily Gabapentin Oral 300 mg, 2x a day Ibuprofen Oral 800 mg, PRN Tramadol HCL Oral 50 mg, daily, Started 10 days ago The source(s) of the original Home Medication information: patient The following Medications were given to the patient in the Emergency Department: IV NS IV Fluids bolus 0, then 750 mL/hr, administered: 11/20/2016 2:10:00 AM PHENERGAN [IVP] IVP 25 mg, administered: 11/20/2016 2:11:00 AM Benadryl [IVP] IVP 25 mg, administered: 11/20/2016 2:13:00 AM Toradol [IVP] IVP 30 mg, administered: 11/20/2016 2:15:00 AM Decadron [IVP] IVP 10 mg, administered: 11/20/2016 2:17:00 AM The following Medications were prescribed to the patient: Zofran (orally disintegrating tablets) 4 mg: take 1 orally every 8 hours as needed for nausea and vomiting. Dispense ten (10). No refill. Substitution is permissible. -- Jordin Weiner Dr. Fiorinal 50 mg: take 1 orally every 6 hours as needed for pain or headache. Dispense thirty (30). No refill. Substitution is permissible. -- Jordin Weiner Dr.
--- NOTE | 2016-11-26 21:23 | ED DISCHARGE INSTRUCTIONS ---
Patient: JOSE RAUL PRINCE General Instructions [facility] VisitID: [id number] [address] [place] [address] 51y, F Registration Date/Time: 11/20/2016 11/20/2016 01:40 BP: 133/78. HR: 87. RR: 19. O2 saturation: 95%. Temp: 97.1 F. Pain level now: 06/26. Acute headache (right sided). Blood pressure normal. Oxygen saturation normal. INSTRUCTIONS Warnings: GENERAL WARNINGS: Return or contact your physician immediately if your condition worsens or changes unexpectedly, if not improving as expected, or if other problems arise. SPECIFICALLY, return if you develop fever, vomiting, numbness, weakness, difficulty thinking, visual disturbances, fainting or extreme fatigue. Your Current Medications: CONTINUE TAKING THE FOLLOWING MEDICATIONS: Effexor XR Oral : 75 mg daily. Gabapentin Oral : 300 mg 2x a day. Ibuprofen Oral : 800 mg PRN. Tramadol HCL Oral : 50 mg daily, Started 10 days ago. Prescription Medications: Zofran (orally disintegrating tablets) 4 mg: take 1 orally every 8 hours as needed for nausea and vomiting. Dispense ten (10). No refill. Substitution is permissible. Fiorinal 50 mg: take 1 orally every 6 hours as needed for pain or headache. Dispense thirty (30). No refill. Substitution is permissible. Follow-up: Return to the emergency department as needed. Follow up with your doctor in three days. Reason for referral: recheck today's concerns. Summary of care provided to patient via paper. Screening today revealed the patient's blood pressure to be in the normal range. The patient should follow up with a primary care provider for blood pressure management. Understanding of the discharge instructions verbalized by patient. ADDITIONAL INFORMATION Headache [Unspecified] The cause of your headache today is not clear, but it does not appear to be the sign of any serious illness. Under stress, some people tense the muscles of their shoulder, neck and scalp without knowing it. If this condition lasts long enough, a TENSION HEADACHE can occur. A MIGRAINE HEADACHE is caused by changes in blood flow to the brain. A migraine attack may be triggered by emotional stress, hormone changes during the menstrual cycle, oral contraceptives, alcohol use, certain foods containing tyramine, eye strain, weather changes, missing meals, lack of sleep or oversleeping. Other causes of headache include a viral illness with high fever, head injury with concussion, sinus, ear or throat infection, dental pain and TMJ (jaw joint) pain. More serious but less common causes of headache include stroke, brain hemorrhage, brain tumor, meningitis and encephalitis. Home Care: If you were given pain medicine for this headache, do not drive yourself home. Arrange for a ride, instead. When you get home, try to sleep. You should feel much better when you wake up. Apply heat to the back of your neck to relieve neck muscle spasm. Migraine headaches may respond best to an ice pack on the forehead or at the base of the skull. If you are having nausea or vomiting, follow a light diet until your headache is relieved. If you have a migraine type headache, use sunglasses when in the daylight or around bright indoor lighting until symptoms improve. Bright glaring light can worsen this kind of headache. Follow Up with your doctor if the headache is not better within the next 24 hours. If you have frequent headaches you should discuss a treatment plan with your primary care doctor. By being aware of the earliest signs of headache, and starting treatment right away, you may be able to stop the pain yourself. Get Prompt Medical Attention if any of the following occur: Worsening of your head pain or no improvement within 24 hours Repeated vomiting (unable to keep liquids down) Fever of 100.4F (38C) or higher, or as directed by your healthcare provider Stiff neck Extreme drowsiness, confusion or fainting Dizziness, vertigo (dizziness with spinning sensation) Weakness of an arm or leg or one side of the face Difficulty with speech or vision Ondansetron Oral disintegrating tablet What is this medicine? ONDANSETRON (on TIANA se mari) is used to treat nausea and vomiting caused by chemotherapy. It is also used to prevent or treat nausea and vomiting after surgery. How should I use this medicine? These tablets are made to dissolve in the mouth. Do not try to push the tablet through the foil backing. With dry hands, peel away the foil backing and gently remove the tablet. Place the tablet in the mouth and allow it to dissolve, then swallow. While you may take these tablets with water, it is not necessary to do so. Talk to your tile conduit layer regarding the use of this medicine in children. Special care may be needed. What side effects may I notice from receiving this medicine? Side effects that you should report to your doctor or health customer care agent as soon as possible: allergic reactions like skin rash, itching or hives, swelling of the face, lips, or tongue breathing problems dizziness fast or irregular heartbeat feeling faint or lightheaded, falls fever and chills swelling of the hands and feet tightness in the chest Side effects that usually do not require medical attention (report to your doctor or health customer care agent if they continue or are bothersome): constipation or diarrhea headache What may interact with this medicine? Do not take this medicine with any of the following medications: -apomorphine -cisapride -dofetilide -dronedarone -pimozide -thioridazine -ziprasidone This medicine may also interact with the following medications: -carbamazepine -phenytoin -rifampicin -tramadol -other medicines that prolong the QT interval (cause an abnormal heart rhythm) What if I miss a dose? If you miss a dose, take it as soon as you can. If it is almost time for your next dose, take only that dose. Do not take double or extra doses. Where should I keep my medicine? Keep out of the reach of children. Store between 2 and 30 degrees C (36 and 86 degrees F). Throw away any unused medicine after the expiration date. What should I tell my health care provider before I take this medicine? They need to know if you have any of these conditions: heart disease history of irregular heartbeat liver disease low levels of magnesium or potassium in the blood an unusual or allergic reaction to ondansetron, granisetron, other medicines, foods, dyes, or preservatives or trying to get breast-feeding What should I watch for while using this medicine? Check with your doctor or health customer care agent as soon as you can if you have any sign of an allergic reaction. Butalbital, Aspirin, Caffeine Oral tablet What is this medicine? ASPIRIN; BUTALBITAL; CAFFEINE ( pir in; bysukhi MONTOYA bi juli; KAF een) is a pain reliever. It is used to treat tension headaches. How should I use this medicine? Take this medicine by mouth with a full glass of water. Follow the directions on the prescription label. If the medicine upsets your stomach, take the medicine with food or milk. Do not take more than you are told to take. Talk to your tile conduit layer regarding the use of this medicine in children. Special care may be needed. Caution should be used in children, especially teenagers, that have the chicken pox or flu. What side effects may I notice from receiving this medicine? Side effects that you should report to your doctor or health customer care agent as soon as possible: allergic reactions like skin rash, itching or hives, swelling of the face, lips, or tongue breathing problems confusion feeling faint or lightheaded, falls redness, blistering, peeling or loosening of the skin, including inside the mouth signs and symptoms of bleeding such as bloody or black, tarry stools; red or dark-brown urine; spitting up blood or brown material that looks like coffee grounds; red spots on the skin; unusual bruising or bleeding from the eye, gums, or nose Side effects that usually do not require medical attention (report to your doctor or health customer care agent if they continue or are bothersome): dizziness drowsiness nausea, vomiting What may interact with this medicine? Do not take this medicine with any of the following medications: alcohol or medicines that contain alcohol cidofovir furazolidone methotrexate MAOIs like Carbex, Eldepryl, Marplan, Nardil, and Parnate probenecid procarbazine voriconazole warfarin This medicine may also interact with the following medications: antidepressants antihistamines benzodiazepines heparin and heparin like drugs including enoxaparin, dalteparin, and tinzaparin medicines for pain muscle relaxants NSAIDs, medicines for pain and inflammation, like ibuprofen or naproxen phenothiazines like chlorpromazine, mesoridazine, prochlorperazine, thioridazine What if I miss a dose? If you miss a dose, take it as soon as you can. If it is almost time for your next dose, take only that dose. Do not take double or extra doses. Where should I keep my medicine? Keep out of the reach of children. This medicine can be abused. Keep your medicine in a safe place to protect it from theft. Do not share this medicine with anyone. Selling or giving away this medicine is dangerous and against the law. Store at room temperature between 20 and 25 degrees C (68 and 77 degrees F). Keep container tightly closed. Protect from light. Throw away any unused medicine after the expiration date. What should I tell my health care provider before I take this medicine? They need to know if you have any of these conditions: drink more than 3 alcohol containing drinks per day drug abuse or addiction heart or circulation problems hemophilia, von Willebrand's disease, low platelets, or other bleeding problems kidney disease or problems going to the bathroom liver disease lung disease like asthma or emphysema peptic ulcer disease porphyria an unusual or allergic reaction to aspirin or salicylates, butalbital or other barbiturates, caffeine, other medicines, foods, dyes, or preservatives or trying to get breast-feeding What should I watch for while using this medicine? Tell your doctor or health customer care agent if your pain does not go away, if it gets worse, or if you have new or a different type of pain. You may develop tolerance to the medicine. Tolerance means that you will need a higher dose of the medicine for pain relief. Tolerance is normal and is expected if you take the medicine for a long time. Do not suddenly stop taking your medicine because you may develop a severe reaction. Your body becomes used to the medicine. This does NOT mean you are addicted. Addiction is a behavior related to getting and using a drug for a non-medical reason. If you have pain, you have a medical reason to take pain medicine. Your doctor will tell you how much medicine to take. If your doctor wants you to stop the medicine, the dose will be slowly lowered over time to avoid any side effects. You may get drowsy or dizzy when you first start taking the medicine or change doses. Do not drive, use machinery, or do anything that may be dangerous until you know how the medicine affects you. Stand or sit up slowly. Too much aspirin can be very dangerous. Do not take aspirin or medicines that contain aspirin with this medicine. Many non-prescription medicines contain aspirin. Always read the labels carefully. You have been given the following additional information: Headache, Unspecified Ondansetron Oral disintegrating tablet Butalbital, Aspirin, Caffeine Oral tablet (Electronically signed by Jordin Weiner Dr. 11/26/2016 21:23)
--- NOTE | 2016-11-26 21:23 | ED MED RECONCILIATION SUMMARY ---
Patient: JOSE RAUL PRINCE Medication Reconciliation Report [facility] VisitID: [id number] [address] [place] [address] 51y, F Registration Date/Time: 11/20/2016 Weight: 74.3 kg Height/Length: 68 in. BMI: 24.9 ALLERGIES: Tylenol The patient's Home Medications are listed below: CONTINUE TAKING THE FOLLOWING MEDICATIONS: Effexor XR Oral 75 mg, daily Gabapentin Oral 300 mg, 2x a day Ibuprofen Oral 800 mg, PRN Tramadol HCL Oral 50 mg, daily, Started 10 days ago The source(s) of the original Home Medication information: patient The following Medications were given to the patient in the Emergency Department: IV NS IV Fluids bolus 0, then 750 mL/hr, administered: 11/20/2016 2:10:00 AM PHENERGAN [IVP] IVP 25 mg, administered: 11/20/2016 2:11:00 AM Benadryl [IVP] IVP 25 mg, administered: 11/20/2016 2:13:00 AM Toradol [IVP] IVP 30 mg, administered: 11/20/2016 2:15:00 AM Decadron [IVP] IVP 10 mg, administered: 11/20/2016 2:17:00 AM The following Medications were prescribed to the patient: Zofran (orally disintegrating tablets) 4 mg: take 1 orally every 8 hours as needed for nausea and vomiting. Dispense ten (10). No refill. Substitution is permissible. -- Jordin Weiner Dr. Fiorinal 50 mg: take 1 orally every 6 hours as needed for pain or headache. Dispense thirty (30). No refill. Substitution is permissible. -- Jordin Weiner Dr.
--- NOTE | 2016-11-26 21:23 | ED MAR SUMMARY ---
..... Medication Administration Record [facility] [address] [place] [address] Patient: JOSE RAUL PRINCE Visit ID: [id number] 51y, F Weight: 74.3 kg Height/Length: 68 in BMI: 24.9 ALLERGIES: Tylenol Start 02:10 11/20/2016 Tony Fagan R.N., Stop 03:27 11/20/2016 Tony Fagan R.N. Medication Administered: IV NS (SALINE), Dose: IV Fluids over 1 hour(s), Rate: 750 mL/hr, Dispensed: 1000 mL bag, Site: #1 right AC. Medication Ordered: IV NS : initial bolus 1000 mL (1000 mL/hr), then none - for X1 (NOW). Given 02:11 11/20/2016 Tony Fagan R.N. Medication Administered: PHENERGAN [IVP] (PROMETHAZINE HCL), Dose: 25 mg IVP over 2 minute(s), Site: #1 right AC. Medication Ordered: Phenergan IV 25 mg (HIGH ALERT MEDICATION, NOW). Given 02:13 11/20/2016 Tony Fagan R.N. Medication Administered: BENADRYL [IVP] (DIPHENHYDRAMINE HCL), Dose: 25 mg IVP over 2 minute(s), Site: #1 right AC. Medication Ordered: Benadryl IV 25 mg (NOW). Given 02:15 11/20/2016 Tony Fagan R.N. Medication Administered: TORADOL [IVP], Dose: 30 mg IVP over 2 minute(s), Site: #1 right AC. Medication Ordered: Toradol IV 30 mg (NOW). Given 02:17 11/20/2016 Tony Fagan R.N. Medication Administered: DECADRON [IVP], Dose: 10 mg IVP over 2 minute(s), Site: #1 right AC. Medication Ordered: Decadron IV 10 mg (NOW).
== END 2016-11-20 03:34 | disposition home or self-care (01) ==
LOC: ED SRH 01:34
DX: R51 Headache (principal); Z88.6 Allergy status to analgesic agent

== ENCOUNTER 2017-01-01 02:59 | Emergency (ER) | payer OTHER ==
--- NOTE | 2017-01-01 05:44 | ED ORDER SUMMARY ---
..... Patient: JOSE RAUL PRINCE Order[facility] VisitID: [id number] [address] [place] [address] 51y, F Registration Date/Time: 01/01/2017 ORDER SHEET Weight: 72.1 kg (stated) Allergies: Tylenol, Imitrex GENERAL ORDERS: CT Head wo Cont Urgent (03:22 01/01/2017 Rigoberto UMANA) (Ack 3:25 IJurca ER Tech1) (4:02 GUnger) CT Cervical Spine wo Cont Urgent (03:01/01/2017 Rigoberto UMANA) (Ack 3:25 IJurca ER Tech1) (4:02 GUnger) Lumbar Spine 2 or 3V Urgent (03:01/01/2017 Rigoberto UMANA) (Ack 3:25 IJurca ER Tech1) (4:02 GUnger) MEDICATION ORDERS: IV FLUIDS: ORDER SHEET NOTES: [Electronically signed by Richard Adrian R.N. (05:58 01/01/2017)] [Electronically signed by Michele Wiley MD (23:38 01/05/2017)] [Electronically locked/signed by Richard Adrian R.N. (05:58 01/01/2017)]
--- NOTE | 2017-01-01 05:44 | ED ORDER SUMMARY ---
..... Patient: JOSE RAUL PRINCE OrderSheet [facility] VisitID: [id number] [address] [place] [address] 51y, F Registration Date/Time: 01/01/2017 ORDER SHEET Weight: 72.1 kg (stated) Allergies: Tylenol, Imitrex GENERAL ORDERS: CT Head wo Cont Urgent (03:22 01/01/2017 Rigoberto UMANA) (Ack 3:25 IJurca ER Tech1) (4:02 GUnger) CT Cervical Spine wo Cont Urgent (03:01/01/2017 Rigoberto UMANA) (Ack 3:25 IJurca ER Tech1) (4:02 GUnger) Lumbar Spine 2 or 3V Urgent (03:01/01/2017 Rigoberto UMANA) (Ack 3:25 IJurca ER Tech1) (4:02 GUnger) MEDICATION ORDERS: IV FLUIDS: ORDER SHEET NOTES: [Electronically signed by Richard Adrian R.N. (05:58 01/01/2017)] [Electronically signed by Michele Wiley MD (23:38 01/05/2017)] [Electronically locked/signed by Richard Adrian R.N. (05:58 01/01/2017)]
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
--- NOTE | 2017-01-05 23:39 | ED MAR SUMMARY ---
..... Medication Administration Record [facility] [address], [place] [id number] Patient: JOSE RAUL PRINCE Visit ID: [id number] 51y, F Weight: 72.1 kg Height/Length: 68 in BMI: 24.2 ALLERGIES: Tylenol, Imitrex
--- NOTE | 2017-01-05 23:39 | ED MAR SUMMARY ---
..... Medication Administration Record [facility] [address] [place], [place] [id number] Patient: JOSE RAUL PRINCE Visit ID: [id number] 51y, F Weight: 72.1 kg Height/Length: 68 in BMI: 24.2 ALLERGIES: Tylenol, Imitrex
--- NOTE | 2017-01-05 23:39 | ED MED RECONCILIATION SUMMARY ---
Patient: JOSE RAUL PRINCE Medication Reconciliation Report [facility] VisitID: [id number] [address] [place] [address] 51y, F Registration Date/Time: 01/01/2017 Weight: 72.1 kg Height/Length: 68 in. BMI: 24.2 ALLERGIES: Imitrex, Tylenol The patient's Home Medications are listed below: THE FOLLOWING MEDICATIONS NEED TO BE RECONCILED: "Barbitol" Effexor XR Oral 75 mg, daily Gabapentin Oral 300 mg, 2x a day Ibuprofen Oral 800 mg, PRN The source(s) of the original Home Medication information: Not obtained. The following Medications were given to the patient in the Emergency Department: None. The following Medications were prescribed to the patient: Soma 350 mg: Take 1 orally every 6 hours as needed for muscle spasm. Dispense twenty (20). No refills. Substitution is permissible. -- Michele Wiley MD
--- NOTE | 2017-01-05 23:39 | ED MED RECONCILIATION SUMMARY ---
Patient: JOSE RAUL PRINCE Medication Reconciliation Report [facility] VisitID: [id number] [address] [place] [address] 51y, F Registration Date/Time: 01/01/2017 Weight: 72.1 kg Height/Length: 68 in. BMI: 24.2 ALLERGIES: Imitrex, Tylenol The patient's Home Medications are listed below: THE FOLLOWING MEDICATIONS NEED TO BE RECONCILED: "Barbitol" Effexor XR Oral 75 mg, daily Gabapentin Oral 300 mg, 2x a day Ibuprofen Oral 800 mg, PRN The source(s) of the original Home Medication information: Not obtained. The following Medications were given to the patient in the Emergency Department: None. The following Medications were prescribed to the patient: Soma 350 mg: Take 1 orally every 6 hours as needed for muscle spasm. Dispense twenty (20). No refills. Substitution is permissible. -- Michele Wiley MD
== END 2017-01-01 05:58 | disposition home or self-care (01) ==
LOC: ED SRH 02:59
DX: S32.038A Other fracture of third lumbar vertebra, initial encounter for closed fracture (principal); S16.1XXA Strain of muscle, fascia and tendon at neck level, initial encounter; S39.012A Strain of muscle, fascia and tendon of lower back, initial encounter; S00.93XA Contusion of unspecified part of head, initial encounter; V43.61XA Car passenger injured in collision with sport utility vehicle in traffic accident, initial encounter; Y99.9 Unspecified external cause status; Y92.830 Public park as the place of occurrence of the external cause; F17.210 Nicotine dependence, cigarettes, uncomplicated

== ENCOUNTER 2017-02-05 14:28 | Emergency (ER) | payer OTHER ==
--- NOTE | 2017-02-05 15:21 | ED CLINICAL REPORT ---
Clinical Report - Physicians/Mid Levels [facility] [address] [place] [address] 02/05/2017 14:28 Patient: JOSE RAUL PRINCE Time Seen: 15:12. Arrived- By private vehicle. Historian- patient. HISTORY OF PRESENT ILLNESS Chief Complaint: BACK PAIN AND OUT OF METHOCARBIMOL. At its maximum, severity described as moderate. When seen in the E.D., severity described as moderate. Modifying factors- worsened by movement. This started about 10 days ago; Low back pain. Also sore heels. No new bowel or bladder incontinence. No new numbness or weakness. No injury and is still present. It was gradual in onset. The patient has had generalized muscle aches. Similar symptoms previously: Many times. REVIEW OF SYSTEMS No fever, cough, difficulty breathing, chest pain or abdominal pain. No nausea, vomiting or diarrhea. PAST HISTORY PCP: Esha [facility] PROBLEMS: Contusion. Myofascial Strain. Cervical Strain. Headache. Fibromyalgia. Depression. Lumbar Strain. Tetanus Status. Immunizations. Back Pain. Migraine Headache. Neck Pain. --14:43 Gladis Mendes, RMaria Del CarmenN. ADDITIONAL SURGERIES: Adenoidectomy. Appendectomy. Back Surgery. . Hysterectomy. Ovarian cysts. Tonsillectomy. Tonsillectomy & Adenoidectomy. SOCIAL HISTORY Current every day smoker. ADDITIONAL NOTES The nursing notes have been reviewed. PHYSICAL EXAM Vital Signs: 02/05/2017 14:38 BP: 97/80. HR: 90. RR: 20. O2 saturation: 97%. Temp: 98.2 F. Pain level now: 10. Appearance: Alert. No acute distress. Neck: Normal inspection. Neck supple. Respiratory: No respiratory distress. Chest nontender. Abdomen: Soft and nontender. Back: Mild soft-tissue tenderness in the lumbar area. Skin: Skin warm. Normal skin color. Extremities: Extremities exhibit normal ROM. No lower extremity edema. Neuro: No alteration in mental status. No motor deficit. No sensory deficit. No Babinski reflex. (SLR neg bilat). PROGRESS AND PROCEDURES Course of Care: No evidence of neurosurgical emergency. No trauma history. Disposition: Discharged. Condition: stable. CLINICAL IMPRESSION Acute lumbar strain. INSTRUCTIONS (CALL YOU [facility] FOR APPOINTMENT FOR MORE MEDS AND MANAGEMENT). Your Current Medications: CONTINUE TAKING THE FOLLOWING MEDICATIONS: Wgjyaaiizf-Ayrcdeu-Cpzqtqzv Oral. Effexor XR Oral. Neurontin Oral. Prescription Medications: Robaxin 750 mg: take 1-2 orally every 6 hours as needed. Dispense thirty (30). No refill. Follow-up: Follow up with your doctor. Understanding of the discharge instructions verbalized by patient and family. (Electronically signed by Reagan Burch MD 02/07/2017 16:02)
--- NOTE | 2017-02-05 15:21 | ED CLINICAL REPORT ---
Clinical Report - Physicians/Mid Levels [facility] [address] [place] [address] 02/05/2017 14:28 Patient: JOSE RAUL PRINCE Time Seen: 15:12. Arrived- By private vehicle. Historian- patient. HISTORY OF PRESENT ILLNESS Chief Complaint: BACK PAIN AND OUT OF METHOCARBIMOL. At its maximum, severity described as moderate. When seen in the E.D., severity described as moderate. Modifying factors- worsened by movement. This started about 10 days ago; Low back pain. Also sore heels. No new bowel or bladder incontinence. No new numbness or weakness. No injury and is still present. It was gradual in onset. The patient has had generalized muscle aches. Similar symptoms previously: Many times. REVIEW OF SYSTEMS No fever, cough, difficulty breathing, chest pain or abdominal pain. No nausea, vomiting or diarrhea. PAST HISTORY PCP: Esha [facility] PROBLEMS: Contusion. Myofascial Strain. Cervical Strain. Headache. Fibromyalgia. Depression. Lumbar Strain. Tetanus Status. Immunizations. Back Pain. Migraine Headache. Neck Pain. --14:43 Gladis Mendes, RMaria Del CarmenN. ADDITIONAL SURGERIES: Adenoidectomy. Appendectomy. Back Surgery. . Hysterectomy. Ovarian cysts. Tonsillectomy. Tonsillectomy & Adenoidectomy. SOCIAL HISTORY Current every day smoker. ADDITIONAL NOTES The nursing notes have been reviewed. PHYSICAL EXAM Vital Signs: 02/05/2017 14:38 BP: 97/80. HR: 90. RR: 20. O2 saturation: 97%. Temp: 98.2 F. Pain level now: 10. Appearance: Alert. No acute distress. Neck: Normal inspection. Neck supple. Respiratory: No respiratory distress. Chest nontender. Abdomen: Soft and nontender. Back: Mild soft-tissue tenderness in the lumbar area. Skin: Skin warm. Normal skin color. Extremities: Extremities exhibit normal ROM. No lower extremity edema. Neuro: No alteration in mental status. No motor deficit. No sensory deficit. No Babinski reflex. (SLR neg bilat). PROGRESS AND PROCEDURES Course of Care: No evidence of neurosurgical emergency. No trauma history. Disposition: Discharged. Condition: stable. CLINICAL IMPRESSION Acute lumbar strain. INSTRUCTIONS (CALL YOU [facility] FOR APPOINTMENT FOR MORE MEDS AND MANAGEMENT). Your Current Medications: CONTINUE TAKING THE FOLLOWING MEDICATIONS: Almrqpkkdc-Ohilbgs-Xtoxjwov Oral. Effexor XR Oral. Neurontin Oral. Prescription Medications: Robaxin 750 mg: take 1-2 orally every 6 hours as needed. Dispense thirty (30). No refill. Follow-up: Follow up with your doctor. Understanding of the discharge instructions verbalized by patient and family. (Electronically signed by Reagan uBrch MD 02/07/2017 16:02)
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
--- NOTE | 2017-02-07 16:02 | ED DISCHARGE INSTRUCTIONS ---
Patient: JOSE RAUL PRINCE General Instructions [facility] VisitID: [id number] [place] [address] 51y, F Registration Date/Time: 02/05/2017 Acute lumbar strain. INSTRUCTIONS (CALL [facility] FOR APPOINTMENT FOR MORE MEDS AND MANAGEMENT). Your Current Medications: CONTINUE TAKING THE FOLLOWING MEDICATIONS: Pxoofukidu-Jfocdav-Onjdjjlx Oral. Effexor XR Oral. Neurontin Oral. Prescription Medications: Robaxin 750 mg: take 1-2 orally every 6 hours as needed. Dispense thirty (30). No refill. Follow-up: Follow up with your doctor. Understanding of the discharge instructions verbalized by patient and family. ADDITIONAL INFORMATION Back Pain [Acute Or Chronic] Back pain is usually caused by an injury to the muscles or ligaments of the spine. Sometimes the disks that separate each bone in the spine may bulge and cause pain by pressing on a nearby nerve. Back pain may also appear after a sudden twisting/bending force (such as in a car accident), after a simple awkward movement, or lifting something heavy with poor body positioning. In either case, muscle spasm is often present and adds to the pain. Acute back pain usually gets better in one to two weeks. Back pain related to disk disease, arthritis in the spinal joints or spinal stenosis (narrowing of the spinal canal) can become chronic and last for months or years. Unless you had a physical injury (for example, a car accident or fall) X-rays are usually not ordered for the initial evaluation of back pain. If pain continues and does not respond to medical treatment, x-rays and other tests may be performed at a later time. Home Care: You may need to stay in bed the first few days. But, as soon as possible, begin sitting or walking to avoid problems with prolonged bed rest (muscle weakness, worsening back stiffness and pain, blood clots in the legs). When in bed, try to find a position of comfort. A firm mattress is best. Try lying flat on your back with pillows under your knees. You can also try lying on your side with your knees bent up towards your chest and a pillow between your knees. Avoid prolonged sitting. This puts more stress on the lower back than standing or walking. During the first two days after injury, apply an ICE PACK to the painful area for 20 minutes every 2-4 hours. This will reduce swelling and pain. HEAT (hot shower, hot bath or heating pad) works well for muscle spasm. You can start with ice, then switch to heat after two days. Some patients feel best alternating ice and heat treatments. Use the one method that feels the best to you. You may use acetaminophen (Tylenol) or ibuprofen (Motrin, Advil) to control pain, unless another pain medicine was prescribed. [NOTE: If you have chronic liver or kidney disease or ever had a stomach ulcer or GI bleeding, talk with your doctor before using these medicines.] Be aware of safe lifting methods and do not lift anything over 15 pounds until all the pain is gone. Follow Up with your doctor or this facility if your symptoms do not start to improve after one week. Physical therapy may be needed. [NOTE: If X-rays were taken, they will be reviewed by a radiologist. You will be notified of any new findings that may affect your care.] Get Prompt Medical Attention if any of the following occur: Pain becomes worse or spreads to your legs Weakness or numbness in one or both legs Loss of bowel or bladder control Numbness in the groin or genital area Methocarbamol Oral tablet What is this medicine? METHOCARBAMOL (meth oh GARY ba mole) helps to relieve pain and stiffness in muscles caused by strains, sprains, or other injury to your muscles. How should I use this medicine? Take this medicine by mouth with a full glass of water. Follow the directions on the prescription label. Take your medicine at regular intervals. Do not take your medicine more often than directed. Talk to your games dealer regarding the use of this medicine in children. Special care may be needed. What side effects may I notice from receiving this medicine? Side effects that you should report to your doctor or health hearing care practitioner as soon as possible: allergic reactions like skin rash, itching or hives, swelling of the face, lips, or tongue blurred vision or changes in vision confusion fainting spells fever nausea or vomiting seizures Side effects that usually do not require medical attention (report to your doctor or health hearing care practitioner if they continue or are bothersome): dizziness drowsiness headache metallic taste What may interact with this medicine? alcohol or medicines that contain alcohol cholinesterase inhibitors like neostigmine, ambenonium, and pyridostigmine bromide other medicines that cause drowsiness What if I miss a dose? If you miss a dose, take it as soon as you can. If it is almost time for your next dose, take only the next dose. Do not take double or extra doses. Where should I keep my medicine? Keep out of the reach of children. Store at room temperature between 20 and 25 degrees C (68 and 77 degrees F). Keep container tightly closed. Throw away any unused medicine after the expiration date. What should I tell my health care provider before I take this medicine? They need to know if you have any of these conditions: kidney disease seizures an unusual or allergic reaction to methocarbamol, other medicines, foods, dyes, or preservatives or trying to get breast-feeding What should I watch for while using this medicine? You may get drowsy or dizzy. Do not drive, use machinery, or do anything that needs mental alertness until you know how this medicine affects you. Do not stand or sit up quickly, especially if you are an older patient. This reduces the risk of dizzy or fainting spells. Alcohol may interfere with the effect of this medicine. Avoid alcoholic drinks. You have been given the following additional information: Back Pain (Acute Or Chronic) Methocarbamol Oral tablet (Electronically signed by Reagan Burch MD 02/07/2017 16:02)
--- NOTE | 2017-02-07 16:02 | ED MED RECONCILIATION SUMMARY ---
Patient: JOSE RAUL PRINCE Medication Reconciliation Report [facility] VisitID: [id number] [address] [place] [address] 51y, F Registration Date/Time: 02/05/2017 Weight: 72.5 kg Height/Length: 68 in. BMI: 24.3 ALLERGIES: Sumatriptan The patient's Home Medications are listed below: CONTINUE TAKING THE FOLLOWING MEDICATIONS: Eefhzyaoqg-Htyxncp-Vvmxhhwt Oral Effexor XR Oral Neurontin Oral The source(s) of the original Home Medication information: Not obtained. The following Medications were given to the patient in the Emergency Department: Hydrocodone-APAP [PO] PO 1 tab, administered: 02/05/2017 3:27:00 PM The following Medications were prescribed to the patient: Robaxin 750 mg: take 1-2 orally every 6 hours as needed. Dispense thirty (30). No refill. -- Reagan Burch MD
--- NOTE | 2017-02-07 16:02 | ED ORDER SUMMARY ---
..... Patient: JOSE RAUL PRINCE OrderSheet [facility] VisitID: [id number] [address] [place] [address] 51y, F Registration Date/Time: 02/05/2017 ORDER SHEET Weight: 72.5 kg (stated) Allergies: Sumatriptan GENERAL ORDERS: MEDICATION ORDERS: Hydrocodone-APAP PO 5/325 mg 2 tabs (NOW, HIGH ALERT MEDICATION) (15:28 02/05/2017 Naun UMANA) (15:37 Rupinder Sampson.[address]) IV FLUIDS: ORDER SHEET NOTES: [Electronically signed by Gladis Mendes R.N. (16:27 02/05/2017)] [Electronically signed by Reagan Burch MD (16:02 02/07/2017)] [Electronically locked/signed by Gladis Mendes R.N. (16:27 02/05/2017)]
--- NOTE | 2017-02-07 16:02 | ED DISCHARGE INSTRUCTIONS ---
Patient: JOSE RAUL PRINCE General Instructions [facility] VisitID: [id number] [place] [address] 51y, F Registration Date/Time: 02/05/2017 Acute lumbar strain. INSTRUCTIONS (CALL YOU [facility] FOR APPOINTMENT FOR MORE MEDS AND MANAGEMENT). Your Current Medications: CONTINUE TAKING THE FOLLOWING MEDICATIONS: Duoypyglbs-Oeqjhwj-Igpyzein Oral. Effexor XR Oral. Neurontin Oral. Prescription Medications: Robaxin 750 mg: take 1-2 orally every 6 hours as needed. Dispense thirty (30). No refill. Follow-up: Follow up with your doctor. Understanding of the discharge instructions verbalized by patient and family. ADDITIONAL INFORMATION Back Pain [Acute Or Chronic] Back pain is usually caused by an injury to the muscles or ligaments of the spine. Sometimes the disks that separate each bone in the spine may bulge and cause pain by pressing on a nearby nerve. Back pain may also appear after a sudden twisting/bending force (such as in a car accident), after a simple awkward movement, or lifting something heavy with poor body positioning. In either case, muscle spasm is often present and adds to the pain. Acute back pain usually gets better in one to two weeks. Back pain related to disk disease, arthritis in the spinal joints or spinal stenosis (narrowing of the spinal canal) can become chronic and last for months or years. Unless you had a physical injury (for example, a car accident or fall) X-rays are usually not ordered for the initial evaluation of back pain. If pain continues and does not respond to medical treatment, x-rays and other tests may be performed at a later time. Home Care: You may need to stay in bed the first few days. But, as soon as possible, begin sitting or walking to avoid problems with prolonged bed rest (muscle weakness, worsening back stiffness and pain, blood clots in the legs). When in bed, try to find a position of comfort. A firm mattress is best. Try lying flat on your back with pillows under your knees. You can also try lying on your side with your knees bent up towards your chest and a pillow between your knees. Avoid prolonged sitting. This puts more stress on the lower back than standing or walking. During the first two days after injury, apply an ICE PACK to the painful area for 20 minutes every 2-4 hours. This will reduce swelling and pain. HEAT (hot shower, hot bath or heating pad) works well for muscle spasm. You can start with ice, then switch to heat after two days. Some patients feel best alternating ice and heat treatments. Use the one method that feels the best to you. You may use acetaminophen (Tylenol) or ibuprofen (Motrin, Advil) to control pain, unless another pain medicine was prescribed. [NOTE: If you have chronic liver or kidney disease or ever had a stomach ulcer or GI bleeding, talk with your doctor before using these medicines.] Be aware of safe lifting methods and do not lift anything over 15 pounds until all the pain is gone. Follow Up with your doctor or this facility if your symptoms do not start to improve after one week. Physical therapy may be needed. [NOTE: If X-rays were taken, they will be reviewed by a radiologist. You will be notified of any new findings that may affect your care.] Get Prompt Medical Attention if any of the following occur: Pain becomes worse or spreads to your legs Weakness or numbness in one or both legs Loss of bowel or bladder control Numbness in the groin or genital area Methocarbamol Oral tablet What is this medicine? METHOCARBAMOL (meth oh GARY ba mole) helps to relieve pain and stiffness in muscles caused by strains, sprains, or other injury to your muscles. How should I use this medicine? Take this medicine by mouth with a full glass of water. Follow the directions on the prescription label. Take your medicine at regular intervals. Do not take your medicine more often than directed. Talk to your enforcement officer regarding the use of this medicine in children. Special care may be needed. What side effects may I notice from receiving this medicine? Side effects that you should report to your doctor or health vehicle care specialist as soon as possible: allergic reactions like skin rash, itching or hives, swelling of the face, lips, or tongue blurred vision or changes in vision confusion fainting spells fever nausea or vomiting seizures Side effects that usually do not require medical attention (report to your doctor or health vehicle care specialist if they continue or are bothersome): dizziness drowsiness headache metallic taste What may interact with this medicine? alcohol or medicines that contain alcohol cholinesterase inhibitors like neostigmine, ambenonium, and pyridostigmine bromide other medicines that cause drowsiness What if I miss a dose? If you miss a dose, take it as soon as you can. If it is almost time for your next dose, take only the next dose. Do not take double or extra doses. Where should I keep my medicine? Keep out of the reach of children. Store at room temperature between 20 and 25 degrees C (68 and 77 degrees F). Keep container tightly closed. Throw away any unused medicine after the expiration date. What should I tell my health care provider before I take this medicine? They need to know if you have any of these conditions: kidney disease seizures an unusual or allergic reaction to methocarbamol, other medicines, foods, dyes, or preservatives or trying to get breast-feeding What should I watch for while using this medicine? You may get drowsy or dizzy. Do not drive, use machinery, or do anything that needs mental alertness until you know how this medicine affects you. Do not stand or sit up quickly, especially if you are an older patient. This reduces the risk of dizzy or fainting spells. Alcohol may interfere with the effect of this medicine. Avoid alcoholic drinks. You have been given the following additional information: Back Pain (Acute Or Chronic) Methocarbamol Oral tablet (Electronically signed by Reagan Burch MD 02/07/2017 16:02)
--- NOTE | 2017-02-07 16:02 | ED MAR SUMMARY ---
..... Medication Administration Record [facility] [address] [place] [address] Patient: JOSE RAUL PRINCE Visit ID: [id number] 51y, F Weight: 72.5 kg Height/Length: 68 in BMI: 24.3 ALLERGIES: Sumatriptan Given 15:27 02/05/2017 Gladis Mendes R.N. Medication Administered: HYDROCODONE-APAP [PO] (HYDROCODONE-ACETAMINOPHEN), Dose: 1 tab 5/325 mg Tablets PO. Medication Ordered: Hydrocodone-APAP PO 5/325 mg 2 tabs (NOW, HIGH ALERT MEDICATION).
--- NOTE | 2017-02-07 16:02 | ED ORDER SUMMARY ---
..... Patient: JOSE RAUL PRINCE OrderSheet [facility] VisitID: [id number] [address] [place] [address] 51y, F Registration Date/Time: 02/05/2017 ORDER SHEET Weight: 72.5 kg (stated) Allergies: Sumatriptan GENERAL ORDERS: MEDICATION ORDERS: Hydrocodone-APAP PO 5/325 mg 2 tabs (NOW, HIGH ALERT MEDICATION) (15:28 02/05/2017 Naun UMANA) (15:37 Rupinder Sampson.NMaria [address] Carmen) IV FLUIDS: ORDER SHEET NOTES: [Electronically signed by Gladis Mendes R.N. (16:27 02/05/2017)] [Electronically signed by Reagan Burch MD (16:02 02/07/2017)] [Electronically locked/signed by Gladis Mendes R.N. (16:27 02/05/2017)]
--- NOTE | 2017-02-07 16:02 | ED MAR SUMMARY ---
..... Medication Administration Record Formerly [facility] [address] [place] [address] Patient: JOSE RAUL PRINCE Visit ID: [id number] 51y, F Weight: 72.5 kg Height/Length: 68 in BMI: 24.3 ALLERGIES: Sumatriptan Given 15:27 02/05/2017 Gladis Mendes R.N. Medication Administered: HYDROCODONE-APAP [PO] (HYDROCODONE-ACETAMINOPHEN), Dose: 1 tab 5/325 mg Tablets PO. Medication Ordered: Hydrocodone-APAP PO 5/325 mg 2 tabs (NOW, HIGH ALERT MEDICATION).
--- NOTE | 2017-02-07 16:02 | ED MED RECONCILIATION SUMMARY ---
Patient: JOSE RAUL PRINCE Medication Reconciliation Report [facility] VisitID: [id number] [address] [place] [address] 51y, F Registration Date/Time: 02/05/2017 Weight: 72.5 kg Height/Length: 68 in. BMI: 24.3 ALLERGIES: Sumatriptan The patient's Home Medications are listed below: CONTINUE TAKING THE FOLLOWING MEDICATIONS: Kxfpnftbub-Atzltfh-Ucophncq Oral Effexor XR Oral Neurontin Oral The source(s) of the original Home Medication information: Not obtained. The following Medications were given to the patient in the Emergency Department: Hydrocodone-APAP [PO] PO 1 tab, administered: 02/05/2017 3:27:00 PM The following Medications were prescribed to the patient: Robaxin 750 mg: take 1-2 orally every 6 hours as needed. Dispense thirty (30). No refill. -- Reagan Burch MD
== END 2017-02-05 15:25 | disposition home or self-care (01) ==
LOC: ED SRH 14:28
DX: S39.012A Strain of muscle, fascia and tendon of lower back, initial encounter (principal); X58.XXXA Exposure to other specified factors, initial encounter; Y93.9 Activity, unspecified; Y92.9 Unspecified place or not applicable; Y99.9 Unspecified external cause status; M79.7 Fibromyalgia; Z79.82 Long term (current) use of aspirin; F17.210 Nicotine dependence, cigarettes, uncomplicated; Z88.6 Allergy status to analgesic agent

== ENCOUNTER 2017-03-10 10:13 | Outpatient (CLI) | payer OTHER ==
--- NOTE | 2017-03-12 07:11 | DIAGNOSTIC IMAGING REPORT ---
PROCEDURE: MR LUMBAR SPINE W/WO CONTRAST INDICATION: ACUTE BILATERAL LOW BACK PAIN WITHOUT SCIATICA TECHNIQUE: T1, T2 and STIR sagittal images. T1 and T2 axial images. Following 10 mL of intravenous gadolinium (ProHance), FAT-SAT T1 sagittal and axial images were obtained. COMPARISON: CT lumbar spine 01/01/2017. FINDINGS: Normal alignment without fracture or suspicious osseous lesion. L4-5 disc expanders. Mild spur formation with multilevel disc desiccation and bulging. L2 Schmorl's node. Conus terminates at L1. Paraspinal soft tissues are normal. L1-2: Mild left facet arthropathy. L2-3: Desiccation of the disc. No foraminal or spinal stenosis. L3-4: Mild left foraminal disc bulge/spur complex and facet arthropathy, left greater than right. There is mild left foraminal stenosis. Mild spinal stenosis. 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 With mild facet arthropathy. No foraminal or spinal stenosis. There is increased signal along the left lateral aspect of L4 and L5 which appears to be due to magnetic susceptibility artifacts since this area demonstrates normal T1 and T2 signal. Paraspinal abscess is unlikely. L5-S1: Mild broad-based disc bulge and facet arthropathy. There is mild left foraminal stenosis primarily due to bony encroachment. IMPRESSION: 1. Mild degenerative changes with multilevel disc bulging 2. L3-4 mild left foraminal disc bulge with mild left foraminal and spinal stenosis. 3. 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 Paraspinal abscess is unlikely. Recommend clinical correlation (sed rate, WBC). 4. Mild L5-S1 left foraminal stenosis.
--- NOTE | 2017-03-12 07:11 | DIAGNOSTIC IMAGING REPORT ---
PROCEDURE: MR LUMBAR SPINE W/WO CONTRAST INDICATION: ACUTE BILATERAL LOW BACK PAIN WITHOUT SCIATICA TECHNIQUE: T1, T2 and STIR sagittal images. T1 and T2 axial images. Following 10 mL of intravenous gadolinium (ProHance), FAT-SAT T1 sagittal and axial images were obtained. COMPARISON: CT lumbar spine 01/01/2017. FINDINGS: Normal alignment without fracture or suspicious osseous lesion. L4-5 disc expanders. Mild spur formation with multilevel disc desiccation and bulging. L2 Schmorl's node. Conus terminates at L1. Paraspinal soft tissues are normal. L1-2: Mild left facet arthropathy. L2-3: Desiccation of the disc. No foraminal or spinal stenosis. L3-4: Mild left foraminal disc bulge/spur complex and facet arthropathy, left greater than right. There is mild left foraminal stenosis. Mild spinal stenosis. 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 With mild facet arthropathy. No foraminal or spinal stenosis. There is increased signal along the left lateral aspect of L4 and L5 which appears to be due to magnetic susceptibility artifacts since this area demonstrates normal T1 and T2 signal. Paraspinal abscess is unlikely. L5-S1: Mild broad-based disc bulge and facet arthropathy. There is mild left foraminal stenosis primarily due to bony encroachment. IMPRESSION: 1. Mild degenerative changes with multilevel disc bulging 2. L3-4 mild left foraminal disc bulge with mild left foraminal and spinal stenosis. 3. 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 Paraspinal abscess is unlikely. Recommend clinical correlation (sed rate, WBC). 4. Mild L5-S1 left foraminal stenosis.
== END 2017-03-10 23:00 ==
LOC: MRI SRH 10:13 → LAB SRH 10:13 → MRI SRH 11:00
DX: M54.5 Low back pain (principal)